=== PATIENT | male | born 1950 | race Caucasian/White ===

== ENCOUNTER → 2016-10-30 | Outpatient (CLI) | payer MEDICARE, BC ==
[2016-10-30 10:32] LABS: CALCIUM 8.9 mg/dL (8.5-10.1); CREATININE 1.2 mg/dL (0.7-1.3); GFR 60.6
[2016-10-30 13:55] LABS: THYROID STIM HORMONE (TSH) 0.626 uIU/mL (0.358-3.740)
[2016-10-30 18:09] LABS: CREAT RD UR 119.6 mg/dL (Not Estab.); MICRO CREAT RATIO <10.0 mg/g creat (0.0-30.0); MICROALB RD UR <12.0 ug/mL (Not Estab.)
== END | disposition home or self-care (01) ==
LOC: LAB 09:37
PROVIDERS: ATTEND Internal Medicine
DX: E11.9 Type 2 diabetes mellitus without complications (principal)
CPT/HCPCS: 36415; 80048; 80061; 82043; 82570; 84443; 84450; 84460

== ENCOUNTER → 2021-05-11 | Outpatient (CLI) | payer MEDICARE, BC ==
[~2021-05-11] MED LIST: IOHEXOL 240 MG/ML 50ML VIAL. ONE; IOHEXOL 240 MG/ML 50ML VIAL. PO ONE; IOHEXOL 300 MG/ML 75 ML VIAL. IV ONE
--- NOTE | 2021-05-11 10:35 | RAD ---
EXAM: Abdomen and pelvis CT with intravenous contrast. HISTORY: Pain. TECHNIQUE: Computed tomographic images of the abdomen and pelvis were obtained following the administ ration of intravenous contrast. Multiplanar reformatting was performed. *One or more of the following individualized dose reduction techniques were utilized for this examina tion: 1. Automated exposure control. 2. Adjustment of the mA and/or kV according to patient size. 3. Use of iterative reconstruction technique. COMPARISON: None. FINDINGS: Evaluation of the lower thorax demonstrate lingular and bilateral posterior dependent atele ctasis. There is no infiltrate or pleural effusion. There is a small hiatal hernia. No hepatic lesion is seen. The gallbladder, spleen and adrenal glands are unremarkable. There is fluid density within the pancreatic head due to volume averaging of the downstream common bile duct. No convincing pancrea tic lesion is seen. There are multiple renal cysts, largest of which measures 9.2 cm on the right and contains a thin enh ancing internal septation within its superior aspect. There is no convincing solid renal lesion. There is no appendicitis. There is circumferential wall thickening involving the cecum and ascending colon. There is segmental narrowing with surrounding inflammatory stranding involving the hepatic fle xure of the colon. There is colonic diverticulosis. There is no diverticulitis. There is slight defor mation of the bladder due to the prostate. The aorta is normal in caliber. No pathologically enlarged lymph node is seen. There are degenerative changes involving the spine. There is grade 1 anterolisthesis of L5 on S1. There is no acute osseous finding. IMPRESSION: 1. Circumferential wall thickening involving the cecum and ascending colon. Correlate for colitis of infectious or inflammatory etiologies. There is also segmental luminal narrowing involving the hepati c flexure of the colon, a component of which is due to peristalsis. Given the presence of a few diver ticula and surrounding fatty stranding in this location, the differential includes acute diverticulit is as well as colitis. Short-term follow-up or correlation with a colonoscopy is recommended to exclu de underlying neoplasm. 2. Multiple renal cysts, one of which measuring 9.2 cm within the right kidney contains a thin enhanc ing internal septation. There is no convincing solid renal lesion. Sonographic follow-up can be perfo rmed in 6 months to confirm benignity. 3. Small hiatal hernia. 4. Colonic diverticulosis. Electronically signed by: Natalia Vickers MD (05/11/2021 10:28 AM) [id number]
== END ==
LOC: CT 08:28
PROVIDERS: ATTEND Family Medicine
DX: K57.32 Diverticulitis of large intestine without perforation or abscess without bleeding (principal); K44.9 Diaphragmatic hernia without obstruction or gangrene; N28.1 Cyst of kidney, acquired; K57.30 Diverticulosis of large intestine without perforation or abscess without bleeding; K52.9 Noninfective gastroenteritis and colitis, unspecified; J98.11 Atelectasis; M47.817 Spondylosis without myelopathy or radiculopathy, lumbosacral region; M43.17 Spondylolisthesis, lumbosacral region
CPT/HCPCS: 74177; Q9966; Q9967